=== PATIENT | female | born 1975 | race American Indian/Alaskan Native ===

== ENCOUNTER 2017-05-26 12:02 | Emergency (ER) | payer MEDICAID ==
[2017-05-26 12:29] VITALS: BP 114/74
--- NOTE | 2017-05-26 12:53 | Emergency Department Report ---
ED General Adult HPI - General Chief complaint: Sore Throat Stated complaint: COUGH Time Seen by Provider: 05/26/17 12:48 Source: patient Mode of arrival: Ambulatory Limitations: No Limitations - History of Present Illness Initial comments: 21-year-old female presents to the ED complaining about cough since starting her new blood pressure medicine lisinopril one week ago. States that it is a dry intermittent cough that is nonproductive. States taking [id number] medication with no relief. denies Fever, sore throat, congestion, runny nose, chest pain, shortness of breath. -: Gradual, days(s) (7) - Related Data Previous Rx's Medication Instructions Recorded Last Taken Type HYDROcodone/APAP 5-325 [[place] 1 each PO Q6HR PRN #20 tablet 04/27/14 Unknown Rx 5/325] Azithromycin [Zithromax Z-HARMEET] 250 mg PO DAILY #6 tablet 10/24/14 Unknown Rx Benzonatate [Tessalon Perles] 100 mg PO Q8HR #30 capsule 10/24/14 Unknown Rx Hydrochlorothiazide [Hctz] 12.5 mg PO QDAY #30 capsule 10/24/14 Unknown Rx Prednisone [Prednisone 5 mg (6-Day 5 mg PO .TAPER #1 tab.ds.pk 10/24/14 Unknown Rx Pack, 21 Tabs)] Amoxicillin [Trimox CAP] 500 mg PO Q8H #30 capsule 01/30/15 Unknown Rx Fluticasone Propionate [Flonase] 2 sprays NS QDAY #1 bottle 01/30/15 Unknown Rx Ibuprofen [Motrin 800 MG tab] 800 mg PO Q8H #30 tablet 01/30/15 Unknown Rx Loratadine [Claritin] 10 mg PO DAILY #30 tablet 01/30/15 Unknown Rx Promethazine /Codeine 5 ml PO Q6H PRN #120 ml 01/30/15 Unknown Rx [Phenergan/Codeine 6.25-10 mg/5 ml] predniSONE [Deltasone] 40 mg PO QDAY #10 01/30/15 Unknown Rx Ibuprofen [Motrin 800 MG tab] 800 mg PO Q8HR PRN #30 tablet 04/28/16 Unknown Rx ALBUTEROL Inhaler [ProAir HFA 2 puff IH QID PRN #1 inhalation 05/26/17 Unknown Rx Inhaler] Benzonatate [Tessalon Perles] 100 mg PO Q8HR #20 capsule 05/26/17 Unknown Rx Hydrochlorothiazide [HCTZ] 25 mg PO QDAY #30 tablet 05/26/17 Unknown Rx amLODIPine [Norvasc] 5 mg PO DAILY #30 tab 05/26/17 Unknown Rx Allergies Allergy/AdvReac Type Severity Reaction Status Date / Time No Known Allergies Allergy Verified 05/26/17 12:21 ED Review of Systems ROS: Stated complaint: COUGH Other details as noted in HPI Constitutional: denies: chills, fever Eyes: denies: eye pain, eye discharge, vision change ENT: denies: ear pain, throat pain Respiratory: cough. denies: shortness of breath, wheezing Cardiovascular: denies: chest pain, palpitations Endocrine: no symptoms reported Gastrointestinal: denies: abdominal pain, nausea, diarrhea Genitourinary: denies: urgency, dysuria, discharge Musculoskeletal: denies: back pain, joint swelling, arthralgia Skin: denies: rash, lesions Neurological: denies: headache, weakness, paresthesias Psychiatric: denies: anxiety, depression Hematological/Lymphatic: denies: easy bleeding, easy bruising ED Past Medical Hx - Past Medical History Previous Medical History?: Yes Hx Hypertension: Yes Hx Diabetes: Yes (gestational) - Surgical History Past Surgical History?: Yes Additional Surgical History: c section - Social History Smoking Status: Never Smoker Substance Use Type: None - Medications Home Medications: Home Medications Medication Instructions Recorded Confirmed Last Taken Type HYDROcodone/APAP 5-325 [[place] 1 each PO Q6HR PRN #20 tablet 04/27/14 Unknown Rx 5/325] Azithromycin [Zithromax Z-HARMEET] 250 mg PO DAILY #6 tablet 10/24/14 Unknown Rx Benzonatate [Tessalon Perles] 100 mg PO Q8HR #30 capsule 10/24/14 Unknown Rx Hydrochlorothiazide [Hctz] 12.5 mg PO QDAY #30 capsule 10/24/14 Unknown Rx Prednisone [Prednisone 5 mg (6-Day 5 mg PO .TAPER #1 tab.ds.pk 10/24/14 Unknown Rx Pack, 21 Tabs)] Amoxicillin [Trimox CAP] 500 mg PO Q8H #30 capsule 01/30/15 Unknown Rx Fluticasone Propionate [Flonase] 2 sprays NS QDAY #1 bottle 01/30/15 Unknown Rx Ibuprofen [Motrin 800 MG tab] 800 mg PO Q8H #30 tablet 01/30/15 Unknown Rx Loratadine [Claritin] 10 mg PO DAILY #30 tablet 01/30/15 Unknown Rx Promethazine /Codeine 5 ml PO Q6H PRN #120 ml 01/30/15 Unknown Rx [Phenergan/Codeine 6.25-10 mg/5 ml] predniSONE [Deltasone] 40 mg PO QDAY #10 01/30/15 Unknown Rx Ibuprofen [Motrin 800 MG tab] 800 mg PO Q8HR PRN #30 tablet 04/28/16 Unknown Rx ALBUTEROL Inhaler [ProAir HFA 2 puff IH QID PRN #1 inhalation 05/26/17 Unknown Rx Inhaler] Benzonatate [Tessalon Perles] 100 mg PO Q8HR #20 capsule 05/26/17 Unknown Rx Hydrochlorothiazide [HCTZ] 25 mg PO QDAY #30 tablet 05/26/17 Unknown Rx amLODIPine [Norvasc] 5 mg PO DAILY #30 tab 05/26/17 Unknown Rx ED Physical Exam - General Limitations: No Limitations General appearance: alert, in no apparent distress - Head Head exam: Present: atraumatic, normocephalic - Eye Eye exam: Present: normal appearance - ENT ENT exam: Present: normal orophraynx, mucous membranes moist - Neck Neck exam: Present: normal inspection - Respiratory Respiratory exam: Present: normal lung sounds bilaterally. Absent: respiratory distress, wheezes, rales, rhonchi, stridor - Cardiovascular Cardiovascular Exam: Present: regular rate, normal rhythm. Absent: systolic murmur, diastolic murmur, rubs, gallop - GI/Abdominal GI/Abdominal exam: Present: soft, normal bowel sounds - Extremities Exam Extremities exam: Present: normal inspection - Back Exam Back exam: Present: normal inspection - Neurological Exam Neurological exam: Present: alert, oriented X3 - Psychiatric Psychiatric exam: Present: normal affect, normal mood - Skin Skin exam: Present: warm, dry, intact, normal color. Absent: rash ED Course Vital Signs 05/26/17 12:22 Temperature 98.4 F Pulse Rate 81 Respiratory 18 Rate Blood Pressure 114/74 O2 Sat by Pulse 100 Oximetry ED Medical Decision Making - Medical Decision Making Patient is resting comfortably at this time. Cough may be secondary to starting lisinopril one week ago. Was switched to amlodipine until follow-up with PCP. No acute distress at this time. Critical care attestation.: If time is entered above; I have spent that time in minutes in the direct care of this critically ill patient, excluding procedure time. ED Disposition Clinical Impression: Acute bronchitis Disposition: DC- TO HOME OR SELFCARE Is pt being admited?: No Does the pt Need Aspirin: No Condition: Stable Instructions: Acute Bronchitis (ED) Prescriptions: ALBUTEROL Inhaler [ProAir HFA Inhaler] 2 puff IH QID PRN #1 inhalation PRN Reason: Shortness Of Breath amLODIPine [Norvasc] 5 mg PO DAILY #30 tab Benzonatate [Tessalon Perles] 100 mg PO Q8HR #20 capsule Hydrochlorothiazide [HCTZ] 25 mg PO QDAY #30 tablet Referrals: PRIMARY CARE, [Primary Care Provider] - 3-5 Days Forms: Work/School Release Form(ED) Time of Disposition: 12:52
== END 2017-05-26 13:22 | disposition home or self-care (01) ==
LOC: ED 12:02
DX: J20.9 Acute bronchitis, unspecified (principal); I10 Essential (primary) hypertension
CPT/HCPCS: 99282

== ENCOUNTER 2018-07-25 18:39 | Emergency (ER) | payer MEDICAID | END 2018-07-25 19:11 | disposition left against medical advice (07) | LOC: ED 18:39 | DX: M25.539 Pain in unspecified wrist (principal); Z53.21 Procedure and treatment not carried out due to patient leaving prior to being seen by health care provider ==

== ENCOUNTER 2018-07-25 18:44 | Emergency (ER) | payer MEDICAID | END 2018-07-25 19:11 | disposition left against medical advice (07) | LOC: ED 18:44 | DX: M25.539 Pain in unspecified wrist (principal); Z53.21 Procedure and treatment not carried out due to patient leaving prior to being seen by health care provider ==

== ENCOUNTER 2019-09-24 11:26 | Emergency (ER) | payer MEDICAID ==
--- NOTE | 2019-09-24 11:37 | Event Note ---
ED Screening Note Date of service: 09/24/19 Time: 11:36 ED Screening Note: 44 y o f presents with chest pain that began last night while she was moving pmh: htn This initial assessment/diagnostic orders/clinical plan/treatment(s) is/are subject to change based on patients health status, clinical progression and re- assessment by fellow clinical providers in the ED. Further treatment and workup at subsequent clinical providers discretion. Patient/guardian urged not to elope from the ED as their condition may be serious if not clinically assessed and managed. Initial orders include: cp protocol
[2019-09-24 11:38] VITALS: BP 143/84
[2019-09-24] MEDS ORDERED: ASPIRIN 325 MG TAB PO ONE (11:41)
== END 2019-09-24 12:15 | disposition left against medical advice (07) ==
LOC: ED 11:26
DX: R07.89 Other chest pain (principal); Z53.21 Procedure and treatment not carried out due to patient leaving prior to being seen by health care provider
CPT/HCPCS: 93005; 93010

== ENCOUNTER 2020-12-10 12:30 | Emergency (ER) | payer MEDICAID ==
[2020-12-10] MEDS ORDERED: cloNIDine 0.2 MG TAB PO ONE (13:46)
[2020-12-10 14:26] LABS: Bilirubin,Urine NEG (Negative); Blood,Urine LG (Negative); Color,Urine Yellow (Yellow); Mucus,Urine FEW /HPF
[2020-12-10 14:47] LABS: Basophils % (Auto) 0.4 % (0.0-1.8); Eosinophils # (Auto) 0.1 K/mm3 (0.0-0.4); Eosinophils % (Auto) 2.3 % (0.0-4.3); Hematocrit 44.3 % (30.3-42.9); Lymphocytes # (Auto) 1.5 K/mm3 (1.2-5.4); Lymphocytes % (Auto) 28.7 % (13.4-35.0); Mean Corpuscular HGB Conc 34 % (30-34); Mean Corpuscular Volume 90 fl (79-97); Monocytes # (Auto) 0.4 K/mm3 (0.0-0.8); Monocytes % (Auto) 6.9 % (0.0-7.3); Platelet Count 156 K/mm3 (140-440); Red Blood Count 4.93 M/mm3 (3.65-5.03)
--- NOTE | 2020-12-10 15:06 | Emergency Department Report ---
ED General Adult HPI - General Chief complaint: High BP Stated complaint: HYPERTENSIVE Time Seen by Provider: 12/10/20 13:46 Source: patient Mode of arrival: Ambulatory Limitations: No Limitations - History of Present Illness Initial comments: This is a 45-year-old female nontoxic, well nourished in appearance, no acute signs of distress presents to the ED with complaining of hypertension. Patient stated she went to see her [employer]ESPERSON [employer]IVER for a physical assessment and was told to come to the ER due to hypertension. Patient stated has history of high blood pressure but has not been taking her lisinopril for the past 2 to 3 months. Patient stated she does not like the way she feels while taking this medication with a cough. Patient otherwise denies any symptoms or complaints. Patient denies any chest pain, shortness of breath, fever, chills, nausea, vomiting, headache or stiff neck. Patient denies any allergies. Severity scale (0 -10): 0 Improves with: none Worsens with: none Associated Symptoms: denies other symptoms. denies: confusion, chest pain, cough, diaphoresis, fever/chills, headaches, loss of appetite, malaise, nausea/vomiting, rash, seizure, shortness of breath, syncope, weakness Treatments Prior to Arrival: none - Related Data Previous Rx's Medication Instructions Recorded Last Taken Type HYDROcodone/APAP 5-325 [[place] 1 each PO Q6HR PRN #5 tablet 05/27/18 Unknown Rx 5/325] Ibuprofen [Motrin 800 MG tab] 800 mg PO Q8HR PRN #30 tablet 05/27/18 Unknown Rx Multivitamin with Iron 1 each PO DAILY #30 tablet 05/27/18 Unknown Rx [Multivitamins with Iron] Amlodipine Besylate [Norvasc] 10 mg PO DAILY #60 tablet 12/10/20 Unknown Rx Sulfamethoxazole/Trimethoprim 1 each PO BID #14 tablet 12/10/20 Unknown Rx [Bactrim DS TAB] Allergies Allergy/AdvReac Type Severity Reaction Status Date / Time lisinopril AdvReac COUGH Verified 05/27/18 07:27 ED Review of Systems ROS: Stated complaint: HYPERTENSIVE Other details as noted in HPI Comment: All other systems reviewed and negative Constitutional: denies: chills, fever Eyes: denies: eye pain, eye discharge, vision change ENT: denies: ear pain, throat pain Respiratory: denies: cough, shortness of breath, wheezing Cardiovascular: denies: chest pain, palpitations Endocrine: no symptoms reported Gastrointestinal: denies: abdominal pain, nausea, diarrhea Genitourinary: denies: urgency, dysuria, discharge Musculoskeletal: denies: back pain, joint swelling, arthralgia Skin: denies: rash, lesions Neurological: denies: headache, weakness, paresthesias Psychiatric: denies: anxiety, depression Hematological/Lymphatic: denies: easy bleeding, easy bruising ED Past Medical Hx - Past Medical History Previous Medical History?: Yes Hx Hypertension: Yes (noncompliant with home meds) Hx Heart Attack/AMI: No Hx Diabetes: Yes (gestational) Hx Liver Disease: No Hx Renal Disease: No Hx Seizures: No Hx HIV: No - Surgical History Past Surgical History?: Yes Additional Surgical History: c section - Social History Smoking Status: Never Smoker Substance Use Type: None - Medications Home Medications: Home Medications Medication Instructions Recorded Confirmed Last Taken Type HYDROcodone/APAP 5-325 [[place] 1 each PO Q6HR PRN #5 tablet 05/27/18 Unknown Rx 5/325] Ibuprofen [Motrin 800 MG tab] 800 mg PO Q8HR PRN #30 tablet 05/27/18 Unknown Rx Multivitamin with Iron 1 each PO DAILY #30 tablet 05/27/18 Unknown Rx [Multivitamins with Iron] Amlodipine Besylate [Norvasc] 10 mg PO DAILY #60 tablet 12/10/20 Unknown Rx Sulfamethoxazole/Trimethoprim 1 each PO BID #14 tablet 12/10/20 Unknown Rx [Bactrim DS TAB] ED Physical Exam - General Limitations: No Limitations General appearance: alert, in no apparent distress - Head Head exam: Present: atraumatic, normocephalic - Eye Eye exam: Present: normal appearance - Neck Neck exam: Present: normal inspection, full ROM. Absent: tenderness, meningismus, lymphadenopathy - Respiratory Respiratory exam: Present: normal lung sounds bilaterally. Absent: respiratory distress, wheezes, rales, rhonchi, stridor, chest wall tenderness, accessory muscle use, decreased breath sounds, prolonged expiratory - Cardiovascular Cardiovascular Exam: Present: regular rate, normal rhythm, normal heart sounds. Absent: bradycardia, tachycardia, irregular rhythm, systolic murmur, diastolic murmur, rubs, gallop - GI/Abdominal GI/Abdominal exam: Present: soft, normal bowel sounds. Absent: distended, tenderness, guarding, rebound, rigid, diminished bowel sounds - Extremities Exam Extremities exam: Present: full ROM - Back Exam Back exam: Present: full ROM - Neurological Exam Neurological exam: Present: alert, oriented X3, normal gait - Psychiatric Psychiatric exam: Present: normal affect, normal mood - Skin Skin exam: Present: warm, dry, intact, normal color. Absent: rash ED Course Vital Signs 12/10/20 12/10/20 13:42 13:53 Temperature 99.4 F Pulse Rate 74 69 Respiratory 16 Rate Blood Pressure 205/112 205/112 O2 Sat by Pulse 100 Oximetry - Reevaluation(s) Reevaluation #1: 12/10/20 15:10 Patient is speaking in full sentences with no signs of distress noted. ED Medical Decision Making - Lab Data Result diagrams: 12/10/20 13:51 12/10/20 15:19 - Medical Decision Making 45-year-old female that presents with hypertension and noncompliance with medication. Patient is stable and was examined by me. Patient did receive Catapres which blood pressure decreased prior to discharge. I will start patient on Norvasc due to symptoms of lisinopril and requested not to start lisinopril. Patient has been notified of the lab results with no questions noted by the patient. Patient was educated on hypertension and taking medication as well as lifestyle modification and changes. Patient was instructed to follow-up with a primary care doctor in 3-5 days or if symptoms worsen and continue return to emergency room as soon as possible. At time of discharge, the patient does not seem toxic or ill in appearance. No acute signs of distress noted. Patient agrees to discharge treatment plan of care. No further questions noted by the patient. Critical care attestation.: If time is entered above; I have spent that time in minutes in the direct care of this critically ill patient, excluding procedure time. ED Disposition Clinical Impression: Noncompliance with medication regimen HTN (hypertension) Qualifiers: Hypertension type: unspecified Qualified Code(s): I10 - Essential (primary) hypertension UTI (urinary tract infection) Qualifiers: Urinary tract infection type: acute cystitis Hematuria presence: with hematuria Qualified Code(s): N30.01 - Acute cystitis with hematuria Disposition: TO HOME OR SELFCARE Is pt being admited?: No Does the pt Need Aspirin: No Condition: Stable Instructions: Hypertension (ED), Hypertension, Adult, [id number], Urinary Tract Infection, Adult, [id number] Additional Instructions: Follow-up with a primary care doctor in 3-5 days or if symptoms worsen and continue return to emergency room as soon as possible. Prescriptions: Sulfamethoxazole/Trimethoprim [Bactrim DS TAB] 1 each PO BID #14 tablet Amlodipine Besylate [Norvasc] 10 mg PO DAILY #60 tablet Referrals: PRIMARY MD THEODORA [Primary Care Provider] - 3-5 Days KAROL GRAHAM MD [Staff Physician] - 3-5 Days Time of Disposition: 16:50
[2020-12-10 15:46] LABS: Blood Urea Nitrogen 9 mg/dL (7-17); Hemolysis Index 43
[2020-12-10 15:49] LABS: BUN/Creatinine Ratio 13
[2020-12-10 16:54] VITALS: BP 169/99
== END 2020-12-10 16:50 | disposition home or self-care (01) ==
LOC: ED 12:30
DX: I10 Essential (primary) hypertension (principal); N39.0 Urinary tract infection, site not specified; Z91.14 Patient's other noncompliance with medication regimen; E11.9 Type 2 diabetes mellitus without complications; Z79.899 Other long term (current) drug therapy
CPT/HCPCS: 36415; 80048; 81001; 85025; 87086; 99283

== ENCOUNTER 2021-09-17 16:32 | Emergency (ER) | payer MEDICAID ==
[2021-09-17] MEDS ORDERED: IBUPROFEN 600 MG TAB PO ONE ×2 (18:01→18:21)
[2021-09-17] MEDS ORDERED: CYCLOBENZAPRINE 10 MG TAB PO ONE (18:01)
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
[2021-09-17] MEDS ORDERED: ACETAMINOPHEN 500 MG TAB PO ONE (18:21)
--- NOTE | 2021-09-17 18:22 | Emergency Department Report ---
ED ENT HPI - General Chief complaint: High BP Stated complaint: BODY PAINS AND EAR, MAY BE BLOOD PRESSURE Time Seen by Provider: 09/17/21 18:00 Source: patient Mode of arrival: Ambulatory Limitations: No Limitations - History of Present Illness Initial comments: 46-year-old female presents to the ER today with complaints of ear pain but mainly the left side. She states that she has been having pain in her left ear and around her left jaw just anterior to the left ear for the past 3 days. She states that is hurt when she chews and open her mouth. She states that she feels like the ear pain is causing her to have a headache. She states she has been taking BC powder without much relief of her pain. She was also concerned that her symptom could be related to her blood pressure. She does admit to history of hypertension and used to be on HCTZ, but has not been compliant and has not taken it in 2 months. She states that she has been trying to monitor her diet but she does not check it regularly at home. Other than hypertension she takes no other medications and has no other significant past history. She denies any drainage from the ear any recent URI symptoms, or any injury to her ears or head jaw. She reports no chest pain or shortness of breath, focal weakness, paresthesias or any additional symptoms. MD complaint: ear pain -: days(s) (3) - Related Data Home Medications Medication Instructions Recorded Confirmed Last Taken Amlodipine Besylate 10 mg PO DAILY 02/24/21 02/24/21 02/24/21 05:00 Previous Rx's Medication Instructions Recorded Last Taken Type Ibuprofen 400 mg PO Q6HR PRN #90 tab.chew 02/24/21 Unknown Rx Fluticasone [Flonase] 2 spray NS QDAY #1 bottle 09/17/21 Unknown Rx Ketorolac [Toradol] 10 mg PO Q6H PRN #20 tablet 09/17/21 Unknown Rx Loratadine [Claritin] 10 mg PO DAILY #30 tablet 09/17/21 Unknown Rx hydroCHLOROthiazide [HCTZ] 25 mg PO QDAY #30 tablet 09/17/21 Unknown Rx Allergies Allergy/AdvReac Type Severity Reaction Status Date / Time lisinopril AdvReac COUGH Verified 09/17/21 18:20 ED Dental HPI - General Chief complaint: High BP Stated complaint: BODY PAINS AND EAR, MAY BE BLOOD PRESSURE Time Seen by Provider: 09/17/21 18:00 Source: patient Mode of arrival: Ambulatory Limitations: No Limitations - Related Data Home Medications Medication Instructions Recorded Confirmed Last Taken Amlodipine Besylate 10 mg PO DAILY 02/24/21 02/24/21 02/24/21 05:00 Previous Rx's Medication Instructions Recorded Last Taken Type Ibuprofen 400 mg PO Q6HR PRN #90 tab.chew 02/24/21 Unknown Rx Fluticasone [Flonase] 2 spray NS QDAY #1 bottle 09/17/21 Unknown Rx Ketorolac [Toradol] 10 mg PO Q6H PRN #20 tablet 09/17/21 Unknown Rx Loratadine [Claritin] 10 mg PO DAILY #30 tablet 09/17/21 Unknown Rx hydroCHLOROthiazide [HCTZ] 25 mg PO QDAY #30 tablet 09/17/21 Unknown Rx Allergies Allergy/AdvReac Type Severity Reaction Status Date / Time lisinopril AdvReac COUGH Verified 09/17/21 18:20 ED Review of Systems ROS: Stated complaint: BODY PAINS AND EAR, MAY BE BLOOD PRESSURE Other details as noted in HPI Comment: All other systems reviewed and negative ENT: ear pain, other (left jaw pain ) Respiratory: denies: cough, shortness of breath, wheezing Cardiovascular: denies: chest pain, palpitations Gastrointestinal: denies: abdominal pain, nausea, diarrhea, constipation, hematemesis, melena, hematochezia Genitourinary: denies: urgency, dysuria, frequency, hematuria, discharge, abnormal menses, dyspareunia Musculoskeletal: denies: back pain, joint swelling, arthralgia, myalgia Skin: denies: rash, lesions, change in color, change in hair/nails, pruritus Neurological: headache. denies: weakness, numbness, paresthesias, confusion, abnormal gait, vertigo Psychiatric: denies: anxiety, depression, auditory hallucinations, visual hallucinations, homicidal thoughts, suicidal thoughts Hematological/Lymphatic: denies: easy bleeding, easy bruising, swollen glands ED Past Medical Hx - Past Medical History Hx Hypertension: Yes (took amlodipine this morning) Hx Heart Attack/AMI: No Hx Diabetes: Yes (gestational) Hx Liver Disease: No Hx Renal Disease: No Hx HIV: No - Surgical History Additional Surgical History: c section - Social History Smoking Status: Never Smoker - Medications Home Medications: Home Medications Medication Instructions Recorded Confirmed Last Taken Type Amlodipine Besylate 10 mg PO DAILY 02/24/21 02/24/21 02/24/21 05:00 History Ibuprofen 400 mg PO Q6HR PRN #90 tab.chew 02/24/21 Unknown Rx Fluticasone [Flonase] 2 spray NS QDAY #1 bottle 09/17/21 Unknown Rx Ketorolac [Toradol] 10 mg PO Q6H PRN #20 tablet 09/17/21 Unknown Rx Loratadine [Claritin] 10 mg PO DAILY #30 tablet 09/17/21 Unknown Rx hydroCHLOROthiazide [HCTZ] 25 mg PO QDAY #30 tablet 09/17/21 Unknown Rx ED Physical Exam - General Limitations: No Limitations General appearance: alert, in no apparent distress - Head Head exam: Present: atraumatic, normocephalic, normal inspection - Eye Eye exam: Present: normal appearance, PERRL, EOMI Pupils: Present: normal accommodation - ENT ENT exam: Present: normal exam, mucous membranes moist, TM's normal bilaterally, other (+ TTP left TMJ) - Expanded ENT Exam Expanded TM/Canal exam: Effusion: Right TM, Left TM Mouth exam: Present: normal external inspection Teeth exam: Present: normal inspection Throat exam: Positive: normal inspection - Neck Neck exam: Present: normal inspection, full ROM. Absent: meningismus ED Course Vital Signs 09/17/21 17:11 Temperature 98.0 F Pulse Rate 76 Respiratory 15 Rate Blood Pressure 178/90 O2 Sat by Pulse 99 Oximetry ED Medical Decision Making - Medical Decision Making Patient is awake alert and oriented x3. She has a GCS of 15. She is neurologically intact with a normal gait. She is not toxic or ill-appearing. She is hemodynamically stable. Her physical exam is concerning for TMJ syndrome, she does have ear effusions bilaterally but no signs of otitis media at this time. Patient blood pressure also noted to be elevated during stay. She admits that she has not taken her blood pressure medications and a few months. At this time I do not suspect patient symptoms related to her stroke, NH or unstable angina, meningitis, or any other acute emergent conditions warranting testing at this time. Patient will be treated for her symptoms and she will be restarted on her blood pressure medication. She was instructed to check her blood pressure no more than twice a day, keep a record of her blood pressure readings and follow-up with PCP for continued monitoring. Patient understands that if at any point her symptoms worsens in any way to return immediately to the ER. Patient was stable at time of discharge Critical care attestation.: If time is entered above; I have spent that time in minutes in the direct care of this critically ill patient, excluding procedure time. ED Disposition Clinical Impression: TMJ pain dysfunction syndrome, Otalgia, Eustachian tube dysfunction, Uncontrolled hypertension Disposition: HOME / SELF CARE / HOMELESS Is pt being admited?: No Does the pt Need Aspirin: No Condition: Stable Instructions: Temporomandibular Joint Syndrome, Managing Your Hypertension, Earache, Adult, Hypertension (ED) Additional Instructions: I recommend taking the Toradol as prescribed to help with any pain, I also recommend that you use the Flonase and take the Zyrtec as prescribed to help with the ear. I did also give you a refill on your HCTZ which I do recommend that you start taking again and also continue to monitor your blood pressures at home. Check your blood pressure no more than twice per day keep a record of your blood pressure so that way you can follow-up with your PCP and bring her recordings. Return to the ER if at any point your symptoms changes or worsens in any way. Prescriptions: Loratadine [Claritin] 10 mg PO DAILY #30 tablet Fluticasone [Flonase] 2 spray NS QDAY #1 bottle hydroCHLOROthiazide [HCTZ] 25 mg PO QDAY #30 tablet Ketorolac [Toradol] 10 mg PO Q6H PRN #20 tablet PRN Reason: Pain Referrals: WILL LEE MD [Staff Physician] - 3-5 Days Forms: Work/School Release Form(ED) Time of Disposition: 18:59
[2021-09-17 19:52] VITALS: BP 153/87
== END 2021-09-17 19:30 | disposition home or self-care (01) ==
LOC: ED 16:32
DX: M26.603 Bilateral temporomandibular joint disorder, unspecified (principal); H68.103 Unspecified obstruction of Eustachian tube, bilateral; I10 Essential (primary) hypertension; E11.9 Type 2 diabetes mellitus without complications; Z98.890 Other specified postprocedural states; Z88.8 Allergy status to other drugs, medicaments and biological substances; Z79.899 Other long term (current) drug therapy
CPT/HCPCS: 99282

== ENCOUNTER 2022-02-11 10:32 | Day surgery (SDC) | payer MEDICAID ==
--- NOTE | 2022-02-11 07:39 | Short Stay Summary ---
Short Stay Documentation Date of service: 02/11/22 Narrative H&P: 46-year-old -0-1-5 with a history of dysfunctional uterine bleeding. The patient's ultrasound demonstrated findings of adenomyosis and a 1.7 cm leiomyoma. The patient has failed medical management and has elected to undergo surgical management of her abnormal vaginal bleeding. - History Principal diagnosis: Dysfunctional uterine bleeding Past Medical History: hypertension Past Surgical History: , Other (Tubal ligation; uterine fibroid embolization) Social history: single - Allergies and Medications Current Medications: Allergies No Known Allergies Allergy (Unverified 02/10/22 10:46) Home Medications Medication Instructions Recorded Confirmed Last Taken Type No Known Home Medications [No 02/10/22 02/10/22 Unknown History Reported Home Medications] - Physical exam General appearance: no acute distress Integumentary: no rash HEENT: Atraumatic Lungs: Clear to auscultation Breasts: deferred Heart: Regular rate Gastrointestinal: normal Female Genitourinary: deferred Extremities: no ischemia - Brief post op/procedure progress note Date of procedure: 02/11/22 Pre-op diagnosis: Dysfunctional uterine bleeding Post-op diagnosis: same Procedure: Hysteroscopy Endometrial ablation via NovaSure Anesthesia: MAC Surgeon: NO CHRISTINA Estimated blood loss: minimal Pathology: none Condition: stable - Hospital course Hospital course: The patient was admitted the day of surgery underwent a hysteroscopy and endometrial ablation. Please see operative note for details of surgery. Her postoperative course was uneventful. - Disposition Condition at discharge: Good Disposition: 01 HOME / SELF CARE / HOMELESS Short Stay Discharge Plan Activity: other (Pelvic rest for 1 week) Diet: regular Additional Instructions: Patient may schedule follow-up with Dr. Christina in 4 weeks Prescriptions: Ibuprofen [Motrin] 800 mg PO Q8HR PRN #30 tablet PRN Reason: Pain , Severe (7-10) HYDROcodone/APAP 5-325 [[place] 5/325] 1 each PO Q6HR PRN #15 tablet PRN Reason: Pain
[2022-02-11] MEDS ORDERED: propofoL 200 MG/20 ML VIAL IV ONE (10:35)
[2022-02-11] MEDS ORDERED: LIDOCAINE MPF (2%) 20 MG/1 ML VIAL 5 ML ONE (10:35)
[2022-02-11] MEDS ORDERED: fentaNYL 100 MCG/2 ML INJ ONE (10:35)
[2022-02-11] MEDS ORDERED: LACTATED RINGERS 1,000 ML ONE (11:22)
[2022-02-11] MEDS ORDERED: HYDROmorphone 1 MG/1 ML INJ IV PRN (11:36)
[2022-02-11] MEDS ORDERED: ONDANSETRON 4 MG/2 ML INJ IV PRN (11:36)
[2022-02-11] MEDS ORDERED: HYDROcodone/ACETAMINOPHEN 5-325 MG TAB PO PRN (11:36)
--- NOTE | 2022-02-11 11:36 | Anesthesia Consultation ---
Anesthesia Consult and Med Hx Date of service: 02/11/22 - Airway Anesthetic Teeth Evaluation: Good ROM Head & Neck: Adequate Mental/Hyoid Distance: Adequate Mallampati Class: Class III Intubation Access Assessment: Possibly Difficult - Pre-Operative Health Status ASA Pre-Surgery Classification: ASA2 Proposed Anesthetic Plan: General - Pulmonary Hx Smoking: Yes (former smoker) Hx Respiratory Symptoms: No - Cardiovascular System Hx Hypertension: Yes Hx Heart Attack/AMI: No Hx Percutaneous Transluminal Coronary Angioplasty (PTCA): No - Central Nervous System CVA: No - Endocrine Hx Renal Disease: No Hx Liver Disease: No Hx Insulin Dependent Diabetes: No Hx Non-Insulin Dependent Diabetes: No Hx Thyroid Disease: No - Other Systems Hx Obesity: Yes (BMI 35) - Additional Comments Anesthesia Medical History Comments: Hx PONV w/ prior surgery.
--- NOTE | 2022-02-11 11:36 | Anesthesia Day of Surgery ---
Anesthesia Day of Surgery - Day of Surgery Patient Examined: Yes Patient H&P Reviewed: Yes Patient is NPO: Yes
[2022-02-11] MEDS ORDERED: LACTATED RINGERS 1,000 ML IV SCH (11:45)
[2022-02-11] MEDS ORDERED: SCOPOLAMINE TRANSDERMAL PATCH 72 HR TD NR (12:00)
[2022-02-11] MEDS ORDERED: MIDAZOLAM 2 MG/2 ML INJ IV NR (12:00)
--- NOTE | 2022-02-11 12:41 | Operative Report ---
Operative Report Operative Report: Date of procedure: February 11, 2022 Pre-operative diagnosis: Dysfunctional uterine bleeding Post-operative diagnosis: Same as above Procedure name(s): Hysteroscopy; endometrial ablation via NovaSure Surgeon: Teena Brice M.D. Print Line Tailer: None Anesthesia: Laryngeal mask Findings normal endometrial cavity no intracavitary lesions Indication: 46-year-old with a history of dysfunctional uterine bleeding. Procedure The patient was taken to the operating room and given general tracheal anesthes ia without complication. The patient was prepped and draped in a normal sterile fashion. A bivalve speculum was placed in the patient's vagina single-tooth tenaculums placed on the anterior lip of the cervix. The cervical os was dilated with graduated dilators. A uterine sound was inserted. The hysteroscope was then placed. Insufflation of the uterine cavity was performed with normal saline. Gen. survey of the uterine cavity revealed normal endometrial cavity. The hysteroscope was then removed. The NovaSure device was then inserted. The endometrial length was 6.0 cm and the uterine width was 4.3 cm. The device was engaged and it passed the surveillance of the uterine cavity. The NovaSure device was then deployed with a energy of 142 W that lasted for 45 seconds. The NovaSure device was then removed. The hysteroscope was again reinserted. There was evidence of charring of the endometrial surface. The remainder of the vaginal instruments were then removed atraumatically. The patient was then successfully extubated taken to the recovery room. All sponge laps and needle counts were correct 2.
[2022-02-11] MEDS ORDERED: KETOROLAC 30 MG/1 ML INJ ONE (12:44)
[2022-02-11] MEDS ORDERED: dexAMETHasone 20 MG/5 ML VIAL ONE (12:44)
[2022-02-11] MEDS ORDERED: ONDANSETRON 4 MG/2 ML INJ ONE (12:44)
[2022-02-11] MEDS ORDERED: SODIUM CHLORIDE 0.9% IRRIG SOLN 3000 ML IR ONE (12:55)
--- NOTE | 2022-02-11 14:27 | Post Anesthesia Evaluation ---
- Post Anesthesia Evaluation Patient Participated: Yes Airway Patent: Yes Stable Respiratory Function: Yes Nausea/Vomiting: No Temp > 96.8F: Yes Pain Manageable: Yes Adequeate Hydration: Yes Anesthesia Complications: No
[2022-02-11 14:42] VITALS: BP 143/72
== END 2022-02-11 14:00 | disposition home or self-care (01) ==
LOC: OR 10:32
PROVIDERS: ATTEND Obstetrics & Gynecology
DX: N93.8 Other specified abnormal uterine and vaginal bleeding (principal); D64.9 Anemia, unspecified; N84.0 Polyp of corpus uteri; I10 Essential (primary) hypertension; G47.30 Sleep apnea, unspecified; K21.9 Gastro-esophageal reflux disease without esophagitis; E66.9 Obesity, unspecified; Z79.899 Other long term (current) drug therapy; Z98.891 History of uterine scar from previous surgery; Z72.89 Other problems related to lifestyle; Z98.890 Other specified postprocedural states; Z68.35 Body mass index [BMI] 35.0-35.9, adult
CPT/HCPCS: 58563; 81025; J1100; J1885; J2250; J2405; J2704; J3010; J7120